=== PATIENT | male | born 1995 | race Caucasian/White ===

== ENCOUNTER 2017-06-20 08:33 | Emergency (ER) | payer SELFPAY ==
[2017-06-20] MEDS ORDERED: Zithromax 250 MG TABLET PO ONE (08:55)
[2017-06-20] MEDS ORDERED: Zithromax 250 MG TABLET ONE (08:58)
--- NOTE | 2017-06-20 09:03 | ERPHSYRPT ---
- History of Present Illness Time Seen by Provider: 06/20/17 08:50 Source: patient Exam Limitations: no limitations Patient Subjective Stated Complaint: pt reports having a headcold the last few days-denies fever-denies pain at this time-states he was coughing this morning Triage Nursing Assessment: pt pink warm and [id number] easy and nonlabored- lungs clear-no retractions noted Physician History: FOR THE PAST 3 DAYS PT HAS HAD NASAL CONGESTION; TODAY A NON-PRODUCTIVE COUGH. PT HAS ALSO HAD A HEADACHE 2 DAYS AGO ONLY. PT DENIES CHEST PAIN, FEVER, ABDOMINAL PAIN. Allergies/Adverse Reactions: No Known Drug Allergies Allergy (Unverified 06/20/17 08:46) Home Medications: Levetiracetam [Levetiracetam ER] 750 mg PO BID 06/20/17 [History] Lubiprostone [Amitiza] 8 mcg PO DAILY 06/20/17 [History] Hx Tetanus, Diphtheria Vaccination/Date Given: Yes Hx Influenza Vaccination/Date Given: No Hx Pneumococcal Vaccination/Date Given: No Immunizations Up to Date: Yes - Review of Systems Ears, Nose, & Throat: Nose Congestion Respiratory: Cough, No Dyspnea Cardiac: No Chest Pain Abdominal/Gastrointestinal: No Abdominal Pain Neurological: Headache All Other Systems: Reviewed and Negative - Past Medical History Pertinent Past Medical History: Yes Neurological History: Seizures Respiratory History: Asthma - Past Surgical History Past Surgical History: Yes - Social History Smoking Status: Never smoker Exposure to second hand smoke: No Drug Use: none Patient Lives Alone: No - Nursing Vital Signs Nursing Vital Signs: Initial Vital Signs Temperature 97.5 F 06/20/17 08:39 Pulse Rate 83 06/20/17 08:39 Respiratory Rate 16 06/20/17 08:39 Blood Pressure 135/88 06/20/17 08:39 O2 Sat by Pulse Oximetry 97 06/20/17 08:39 Pain Scale Pain Intensity 0 - Physical Exam General Appearance: alert Eye Exam: PERRL/EOMI Ears, Nose, Throat Exam: TMs normal, moist mucous membranes, pharyngeal erythema , other (NASAL TURBINATES ERYTHEMATOUS AND MILDLY EDEMATOUS.) Neck Exam: normal inspection Respiratory Exam: lungs clear Cardiovascular Exam: normal heart sounds Gastrointestinal/Abdomen Exam: soft, normal bowel sounds Back Exam: normal range of motion Extremity Exam: normal inspection, No pedal edema Neurologic Exam: alert, cooperative Skin Exam: warm, dry SpO2 Interpretation: normal SpO2: 97 Oxygen Delivery: Room Air - Course Nursing assessment & vital signs reviewed: Yes Ordered Tests: Medication Summary Discontinued Medications Generic Name Dose Route Start Last Admin Trade Name Tasneem PRN Reason Stop Dose Admin Azithromycin 500 mg 06/20/17 08:55 Zithromax 250 Mg Tablet PO 06/20/17 08:56 STAT ONE - Departure Time of Disposition: 09:03 Departure Disposition: Home Clinical Impression: PHARYNGITIS, SINUSITIS Condition: Stable Critical Care Time: No Referrals: MARLON PAGAN MD [Primary Care Provider] - Instructions: Sinusitis, Adult (DC) Additional Instructions: FOLLOWUP WITH PRIVATE DOCTOR TOMORROW. Prescriptions: Azithromycin 250 mg [Zithromax 250 MG TABLET] 250 mg PO ZPACK #6 tablet Cetirizine HCl [Zyrtec] 10 mg PO DAILY #10 tablet
[2017-06-20 09:10] VITALS: BP 131/60; PULSE 78; O2SAT 98
== END 2017-06-20 09:09 | disposition home or self-care (01) ==
LOC: ED 08:33
DX: J02.9 Acute pharyngitis, unspecified (principal); J32.9 Chronic sinusitis, unspecified; Z79.899 Other long term (current) drug therapy
CPT/HCPCS: 99282; 99283; A9270-GY

== ENCOUNTER 2018-05-29 03:04 | Emergency (ER) | payer OTHER, SELFPAY ==
[2018-05-29 03:22] VITALS: BP 140/89; PULSE 96; O2SAT 100
--- NOTE | 2018-05-29 03:34 | ERPHSYRPT ---
- History of Present Illness Time Seen by Provider: 05/29/18 03:33 Source: patient Patient Subjective Stated Complaint: pt is alert and oriented. pt is ambulatory with a steady gait. pt comes in with c/o cough x2 days. pt states he has also had a fever, sore throat, and a small amount of diarrhea. pt denies coughing up anything. pt states he went to family doctor earlier today and was put on z- pack. pt lungs clear a-p bilat throughout. pt is 99% on RA at this time and resting comfortable in the bed. Triage Nursing Assessment: see above Physician History: pt comes in with c/o cough x2 days. pt states he has also had a fever, sore throat, and a small amount of diarrhea. pt denies coughing up anything. pt states he went to family doctor earlier today and was put on z-pack. Allergies/Adverse Reactions: No Known Drug Allergies Allergy (Unverified 06/20/17 08:46) Home Medications: levETIRAcetam [Levetiracetam ER] 750 mg PO BID 06/20/17 [History] Hx Tetanus, Diphtheria Vaccination/Date Given: Yes Hx Influenza Vaccination/Date Given: No Hx Pneumococcal Vaccination/Date Given: No Immunizations Up to Date: Yes - Review of Systems Constitutional: No Fever, No Chills Eyes: No Symptoms Ears, Nose, & Throat: No Symptoms Respiratory: No Cough, No Dyspnea Cardiac: No Chest Pain, No Edema, No Syncope Abdominal/Gastrointestinal: No Abdominal Pain, No Nausea, No Vomiting, No Diarrhea Genitourinary Symptoms: No Dysuria Musculoskeletal: No Back Pain, No Neck Pain Skin: No Rash Neurological: No Dizziness, No Focal Weakness, No Sensory Changes Psychological: No Symptoms Endocrine: No Symptoms All Other Systems: Reviewed and Negative - Past Medical History Pertinent Past Medical History: Yes Neurological History: Seizures ENT History: No Pertinent History Cardiac History: No Pertinent History Respiratory History: Asthma Endocrine Medical History: No Pertinent History Musculoskeletal History: No Pertinent History GI Medical History: No Pertinent History History: No Pertinent History Psycho-Social History: No Pertinent History Male Reproductive Disorders: No Pertinent History - Past Surgical History Past Surgical History: Yes Neuro Surgical History: No Pertinent History Cardiac: No Pertinent History Respiratory: No Pertinent History Gastrointestinal: No Pertinent History Genitourinary: No Pertinent History Musculoskeletal: No Pertinent History Male Surgical History: No Pertinent History - Social History Smoking Status: Never smoker Exposure to second hand smoke: No Drug Use: none Patient Lives Alone: No - Nursing Vital Signs Nursing Vital Signs: Initial Vital Signs Temperature 99.5 F 05/29/18 03:17 Pulse Rate 96 H 05/29/18 03:17 Respiratory Rate 20 05/29/18 03:17 Blood Pressure 140/89 05/29/18 03:17 O2 Sat by Pulse Oximetry 100 05/29/18 03:17 Pain Scale Pain Intensity 7 - Physical Exam General Appearance: no apparent distress, alert Eye Exam: PERRL/EOMI, eyes nml inspection Ears, Nose, Throat Exam: normal ENT inspection, TMs normal, pharynx normal, moist mucous membranes Neck Exam: normal inspection, non-tender, supple, full range of motion Respiratory Exam: normal breath sounds, lungs clear, No respiratory distress Cardiovascular Exam: regular rate/rhythm, normal heart sounds Gastrointestinal/Abdomen Exam: soft, No tenderness Back Exam: normal inspection, No CVA tenderness, No vertebral tenderness Extremity Exam: normal inspection, normal range of motion Neurologic Exam: alert, oriented x 3, cooperative, normal mood/affect, sensation nml, No motor deficits Skin Exam: normal color, warm, dry, No rash Lymphatic Exam: No adenopathy SpO2: 100 - Course Nursing assessment & vital signs reviewed: Yes Ordered Tests: Medication Summary Discontinued Medications Generic Name Dose Route Start Last Admin Trade Name Freq PRN Reason Stop Dose Admin Guaifenesin/Codeine Phosphate 10 ml 05/29/18 03:44 Robitussin Ac Syrup Unit Dose Cup PO 05/29/18 03:45 STAT ONE - Progress Progress: improved Counseled pt/family regarding: diagnosis - Departure Time of Disposition: 03:47 Departure Disposition: Home Clinical Impression: Cough, Bronchitis Condition: Stable Critical Care Time: No Referrals: MARLON PAGAN MD [Primary Care Provider] - Instructions: Cough, Adult (DC) Prescriptions: Codeine Phosphate/Guaifenesin [Cheratussin AC Syrup] 5 ml PO QID #120 liquid
[2018-05-29] MEDS ORDERED: Robitussin AC Syrup Unit Dose Cup PO ONE (03:44)
[2018-05-29] MEDS ORDERED: Robitussin AC Syrup Unit Dose Cup ONE (03:46)
== END 2018-05-29 04:00 | disposition home or self-care (01) ==
LOC: ED 03:04
DX: R05 Cough (principal); J40 Bronchitis, not specified as acute or chronic; G40.909 Epilepsy, unspecified, not intractable, without status epilepticus; Z79.899 Other long term (current) drug therapy
CPT/HCPCS: 99283; A9270-GY